=== PATIENT | female | born 1985 | race Hispanic/Latino ===

== ENCOUNTER 2016-06-26 14:08 | Emergency (ER) | payer SELFPAY ==
--- NOTE | 2016-06-26 16:26 | Emergency Department Report ---
Chief Complaint: Abdominal Pain Stated Complaint: ABD PAIN Time Seen by Provider: 06/26/16 16:21 - HPI History of Present Illness: Patient reports abdominal pain that started the first week in May. LMP 05/18 - ROS Review of Systems: all other systems are unremarkable except for documentation in HPI - Exam Vital Signs: Vital Signs 06/26/16 15:39 Temperature 98.7 F Pulse Rate 64 Blood Pressure 137/88 O2 Sat by Pulse 99 Oximetry Physical Exam: Gen: obese, NAD Abd: soft, nondistended, bowel sounds present, suprapubic tenderness to palpation, no guarding, rebound or rigid MSE screening note: Focused history and physical exam performed. Due to findings the following was ordered: laboratory studies ordered ED Disposition for MSE Condition: Stable Instructions: Abdominal Pain (ED)
[2016-06-26 16:53] LABS: Basophils % (Auto) 0.7 % (0.0-1.8); Eosinophils % (Auto) 2.9 % (0.0-4.3); Hematocrit 46.3 % (30.3-42.9); Hemoglobin 15.2 gm/dl (10.1-14.3); Mean Corpuscular HGB Conc 33 % (30-34); Mean Corpuscular Hemoglobin 28 pg (28-32); Mean Corpuscular Volume 87 fl (79-97); Platelet Count 282 K/mm3 (140-440); Red Blood Count 5.34 M/mm3 (3.65-5.03); Red Cell Distribution Width 14.6 % (13.2-15.2); White Blood Count 10.2 K/mm3 (4.5-11.0)
[2016-06-26 17:06] LABS: Blood Urea Nitrogen 6 mg/dL (7-17); Calcium 9.1 mg/dL (8.4-10.2); Carbon Dioxide 26 mmol/L (22-30); Chloride 103.8 mmol/L (98-107); Glucose 113 mg/dL (65-100); Potassium 4.2 mmol/L (3.6-5.0); Sodium 143 mmol/L (137-145)
[2016-06-26 17:11] LABS: Anion Gap 17 mmol/L
[2016-06-26 20:36] LABS: Bacteria,Urine 3+ /HPF (Negative); Bilirubin,Urine NEG (Negative); Blood,Urine NEG (Negative); Ketones,Urine NEG (Negative); Leukocyte Esterase,Urine SM (Negative); Mucus,Urine 2+ /HPF; Nitrite,Urine POS (Negative); Protein,Urine <15 mg/dL mg/dL (Negative); Urobilinogen,Urine < 2.0 mg/dL (<2.0)
[2016-06-26] MEDS ORDERED: PERCOCET 5/325 PO ONE (23:51)
--- NOTE | 2016-06-27 00:04 | Emergency Department Report ---
HPI - General Chief Complaint: Abdominal Pain Time Seen by Provider: 06/26/16 23:31 - HPI HPI: This is a 30-year-old female who presents to the emergency department with a 4 week history of right lower quadrant pain. There is no associated nausea, vomiting, fever, diarrhea, dysuria, vaginal bleeding or discharge. Patient says she has taken some Tylenol for her pain without much relief. She finally came in today because the pain and worsened recently. Patient does have a history of gallstones but says that pain was usually in the upper abdomen and this is in the lower abdomen. No recent travel or sick contacts at home. She has a past medical history of DVT, factor V deficiency, fibroids with myomectomy, abdominal hernia and GERD. ED Past Medical Hx - Past Medical History Hx Congestive Heart Failure: No Hx Diabetes: No Hx Deep Vein Thrombosis: Yes Hx GERD: Yes Hx Sickle Cell Disease: No Hx Seizures: No Hx Asthma: No Hx COPD: No Hx Dementia: No Hx HIV: No Additional medical history: Factor V deficiency, Abdominal hernia FIBROIDS CYST - Surgical History Additional Surgical History: MYEOMECTOMY - Social History Smoking Status: Current Every Day Smoker Substance Use Type: None - Medications Home Medications: Home Medications Medication Instructions Recorded Confirmed Last Taken Type Warfarin [Coumadin] 10 mg PO QDAY 05/27/14 10/05/15 09/30/15 History Ibuprofen [Motrin 200 MG tab] 4 tab PO PRN PRN 10/05/15 10/05/15 10/04/15 14:00 History HYDROcodone/APAP 5-325 [[place] 1 each PO Q4H PRN #30 tablet 10/07/15 Unknown Rx 5-325 mg TAB] HYDROcodone/APAP 5-325 [[place] 1 each PO Q6HR PRN #7 tablet 11/25/15 Unknown Rx 5/325] HYDROcodone/APAP 5-325 [[place] 1 each PO Q6HR PRN #16 tablet 06/27/16 Unknown Rx 5/325] ED Review of Systems ROS: Stated complaint: ABD PAIN Other details as noted in HPI Comment: All other systems reviewed and negative Constitutional: denies: chills, fever Eyes: denies: eye pain, eye discharge, vision change ENT: denies: ear pain, throat pain Respiratory: denies: cough, shortness of breath, wheezing Cardiovascular: denies: chest pain, palpitations Gastrointestinal: abdominal pain. denies: vomiting Genitourinary: denies: urgency, dysuria, discharge Musculoskeletal: denies: back pain, joint swelling, arthralgia Skin: denies: rash, lesions Neurological: denies: headache, weakness, paresthesias Physical Exam - Physical Exam Vital Signs: Vital Signs 06/26/16 06/26/16 15:39 22:35 Temperature 98.7 F 98.5 F Pulse Rate 64 78 Respiratory 18 Rate Blood Pressure 137/88 130/83 O2 Sat by Pulse 99 98 Oximetry Physical Exam: GENERAL: The patient is well-developed well-nourished. Patient does not appear in any acute distress. HEENT: Normocephalic. Atraumatic. Extraocular motions are intact. Patient has moist mucous membranes. Pupils equal reactive to light bilaterally. NECK: Supple. Trachea is midline. CHEST/LUNGS: Clear to auscultation. There is no respiratory distress noted. HEART/CARDIOVASCULAR: Regular. There is no tachycardia. There is no gallop rub or murmur. ABDOMEN: Abdomen is soft. Patient has mild tenderness to palpation to the right lower quadrant. No guarding rebound tenderness. No peritoneal signs. Obese habitus. Patient has normal bowel sounds. There is no abdominal distention. SKIN: There is no rash. There is no edema. There is no diaphoresis. NEURO: The patient is awake, alert, and oriented. The patient is cooperative. The patient has no focal neurologic deficits. The patient has normal speech. MUSCULOSKELETAL: There is no tenderness or deformity. There is no limitation range of motion. There is no evidence of acute injury. ED Course Vital Signs 06/26/16 06/26/16 15:39 22:35 Temperature 98.7 F 98.5 F Pulse Rate 64 78 Respiratory 18 Rate Blood Pressure 137/88 130/83 O2 Sat by Pulse 99 98 Oximetry ED Medical Decision Making - Lab Data Result diagrams: 06/26/16 16:32 06/26/16 16:32 - Radiology Data Radiology results: report reviewed CT of the abdomen and pelvis with IV contrast shows that there are gallstones. There is no specific evidence of cholecystitis or biliary ductal dilation. No bowel obstruction, colitis or enteritis. The appendix is normal. There is an arcuate uterus. There is a fluid and the endometrium. There are complex low density lesions in the cervix which could be nabothian cyst. There are bilateral ovarian cysts. The largest is in the right ovary measuring 4 cm. No ascites or free air, abscess or adenopathy. - Medical Decision Making 30-year-old female presents with 4 week history of right lower quadrant abdominal pain. Patient's vital signs were stable throughout her ED course. Her labs and unremarkable. An abdominal x-ray was done that showed some stool but otherwise no significant acute process. Due to the longevity of the patient 's discomfort, the patient decided that she would rather have a CT of the abdomen and pelvis done today, instead of treating her pain and seeing if she has resolution. The CT was done and it shows possible nabothian cysts as well as bilateral ovarian cysts with the largest on the right at 4 cm, where the patient is having discomfort. No signs of appendicitis. Patient was given a Percocet and is having some decrease in her discomfort. Patient will be given referrals for FITNESS ASSISTANT and primary care. She will return to the ER with any worsening of her symptoms or any acute distress. - Differential Diagnosis ovarian cyst, appendicitis, colitis, fibroids Critical Care Time: No Critical care attestation.: If time is entered above; I have spent that time in minutes in the direct care of this critically ill patient, excluding procedure time. ED Disposition Clinical Impression: Nabothian cyst Abdominal pain Qualifiers: Abdominal location: right lower quadrant Qualified Code(s): R10.31 - Right lower quadrant pain Ovarian cyst Qualifiers: Laterality: bilateral Qualified Code(s): N83.201 - Unspecified ovarian cyst, right side; N83.202 - Unspecified ovarian cyst, left side Disposition: DISCHARGED TO HOME OR SELFCARE Is pt being admited?: No Does the pt Need Aspirin: No Condition: Stable Instructions: Abdominal Pain (ED), Ovarian Cyst (ED) Additional Instructions: Please follow-up with a primary care doctor and FITNESS ASSISTANT in the near future. Return to the emergency department with any worsening of your symptoms or any acute distress. You've been prescribed a medication that is sedating. Therefore this medication cannot be mixed with alcohol, or taken prior to driving, working, or being responsible for children. Prescriptions: HYDROcodone/APAP 5-325 [[place] 5/325] 1 each PO Q6HR PRN #16 tablet PRN Reason: Pain Referrals: PRIMARY CARE, [Primary Care Provider] - 3-5 Days ANALY DIANA MD [Staff Physician] - 3-5 Days BRIANNE KEENAN MD [Staff Physician] - 3-5 Days [facility] [Outside] - 3-5 Days Time of Disposition: 02:09
[2016-06-27 00:09] LABS: Alanine Aminotransferase 18 units/L (7-56); Albumin 3.8 g/dL (3.9-5); Albumin/Globulin Ratio 1.1 %; Alkaline Phosphatase 74 units/L (35-129); Bilirubin,Direct < 0.2 mg/dL (0-0.2); Bilirubin,Total < 0.2 mg/dL (0.1-1.2); Total Protein 7.4 g/dL (6.3-8.2)
[2016-06-27] MEDS ORDERED: NACL ONE (00:41)
--- NOTE | 2016-06-27 01:49 | Cat Scan Report ---
FINAL REPORT PROCEDURE: CT ABDOMEN PELVIS W CON TECHNIQUE: Computerized axial tomography of the abdomen and pelvis was performed after the IV injection of iodinated nonionic contrast. HISTORY: Abd pain COMPARISON: No prior studies are available for comparison. FINDINGS: Visualized lower thorax: No significant abnormality. Liver: Normal size and attenuation. Spleen: Normal size and attenuation. Gallbladder and biliary system: There are gallstones. There is no specific evidence of cholecystitis or biliary ductal dilatation.. Pancreas: Normal. Adrenals: Normal. Kidneys: Normal. GI tract: There is no bowel obstruction, colitis or enteritis. The appendix is normal.. Lymph nodes and mesentery: Normal. Vasculature: Normal. Bladder: Normal. Reproductive organs: There is an arcuate uterus. There is fluid in the endometrium. There are complex low-density the lesions in the cervix which could be nabothian cysts. There are bilateral ovarian cysts. The largest is in the right ovary measuring 4 centimeters.. Peritoneum: There is no ascites or free air, abscess or adenopathy.. Musculoskeletal structures: No significant abnormality. Other: None. IMPRESSION: There are gallstones. There is no specific evidence of cholecystitis or biliary ductal dilatation.. There is no bowel obstruction, colitis or enteritis. The appendix is normal.. There is an arcuate uterus. There is fluid in the endometrium. There are complex low-density the lesions in the cervix which could be nabothian cysts. There are bilateral ovarian cysts. The largest is in the right ovary measuring 4 centimeters.. There is no ascites or free air, abscess or adenopathy..
--- NOTE | 2016-06-27 01:57 | Admit Criteria Form ---
Admission Criteria Documentation: GALLBLADDER OR BILE DUCT INFLAMMATION OR STONE Clinical Indications for Admission to Inpatient Care ( Place 'X' for any and all applicable criteria): Admission is indicated for patients with ANY ONE of the following(1)(2)(3)(4)(5) : [ ]I. Acute cholecystitis as indicated by ALL of the following: [ ]a) Right upper quadrant pain, mass, or tenderness [ ]b) Systemic signs of inflammation indicated by ANY ONE of the following: [ ]i) Fever [ ]ii) C-reactive protein level greater than 10 mg/L (95 nmol/L) [ ]iii) White blood cell count greater than 10,000/mm3 (10 x109/L) or less than 4000/mm3 (4 x109/L) [X ]II. Inpatient admission required rather than observation care (Also use Gallbladder or Bile Duct Inflammation or Stone: Observation Care as appropriate) because of ANY ONE of the following: [ ]a) Common bile duct obstruction diagnosed [ ]b) Vomiting that is severe or persistent [X ]c) Severe pain requiring acute inpatient management [ ]d) Signs of intestinal obstruction or peritonitis [A] [ ]e) Severe electrolyte abnormalities requiring inpatient care [ ]f) Absent bowel sounds with complete ileus(8) [ ]g) Hemodynamic instability [ ]h) High fever or infection requiring inpatient admission as indicated by ANY ONE of the following (9): [ ]1) Appropriate outpatient or observation care antimicrobial Treatment. unavailable, not effective, or not feasible [ ]2) Temperature greater than 104.9 degrees F (40.5 degrees C) (oral) [ ]3) Temperature greater than 103.1 degrees F (39.5 degrees C) (oral) or less than 96.8 degrees F (36 degrees C) (rectal) that does not respond to all emergency treatment measures [ ]4) Documented bacteremia [ ]i) IV fluid to replace significant ongoing losses (greater than 3 L/m2 per day) [ ]j) Percutaneous or open drainage (eg, abscess, biliary tract) procedures [ ]k) Immediate inpatient surgery [ ]l) Other condition, treatment or monitoring requiring inpatient admission [ ]III. Acute cholangitis as indicated by ALL of the following(9)(10): [ ]a) Systemic signs of inflammation indicated by ANY ONE of the following: [ ]i) Fever [ ]ii) C-reactive protein level greater than 10 mg/L (95 nmol /L) [ ]iii) White blood cell count greater than 10,000/mm3 (10 x109/L) or less than 4000/mm3 (4 x109/L) [ ]b) Evidence of common bile duct disease indicated by ANY ONE of the following: [ ]i) Total serum bilirubin level greater than or equal to 2 mg/dL (34 micromoles/L) [ ]ii) Liver function test (alkaline phosphatase (ALP), r- glutamyltransferase (GGT), aspartate aminotransferase (AST), or alanine aminotransferase (ALT)) greater than 1.5 times the upper limit of normal[B] [ ]iii) Hepatobiliary imaging showing biliary dilatation or evidence of etiology (eg, stricture, stone, previously placed stent) Extended stay beyond goal length of stay may be needed for (1)(2)): [ ]a) Bacteremia or Hemodynamic instability [ ]b) Cholecystectomy [ ]c) Other surgical procedure(24) [ ]d) Percutaneous or endoscopic ultrasound-guided cholecystostomy The original [facility] content created by [facility] has been revised. The portions of the content which have been revised are identified through the use of italic text or in bold, and [facility] has neither reviewed nor approved the modified material. All other unmodified content is copyright [facility]. Please see references footnoted in the original [email or web address] edition 2016 Admission Criteria Met: Yes
[2016-06-27 04:39] VITALS: BP 132/89
== END 2016-06-27 02:20 | disposition home or self-care (01) ==
LOC: ED 14:08
DX: N83.201 Unspecified ovarian cyst, right side (principal); N83.202 Unspecified ovarian cyst, left side; N88.8 Other specified noninflammatory disorders of cervix uteri; K21.9 Gastro-esophageal reflux disease without esophagitis; F17.200 Nicotine dependence, unspecified, uncomplicated; Z86.718 Personal history of other venous thrombosis and embolism; Z90.89 Acquired absence of other organs
CPT/HCPCS: 36415; 74020; 74177; 80048; 80074; 81001; 84702; 85025; 99284; Q9967

== ENCOUNTER 2016-11-04 21:37 | Emergency (ER) | payer SELFPAY ==
[2016-11-04 22:09] VITALS: BP 148/95
[2016-11-04 22:35] LABS: Basophils % (Auto) 0.7 % (0.0-1.8); Eosinophils % (Auto) 3.1 % (0.0-4.3); Hemoglobin 12.5 gm/dl (10.1-14.3); Mean Corpuscular HGB Conc 31 % (30-34); Mean Corpuscular Volume 72 fl (79-97); Platelet Count 330 K/mm3 (140-440); Red Blood Count 5.54 M/mm3 (3.65-5.03); Red Cell Distribution Width 18.6 % (13.2-15.2)
[2016-11-04 22:37] LABS: Mean Corpuscular Hemoglobin 23 pg (28-32)
[2016-11-04 22:43] LABS: INR 0.96 (0.87-1.13)
[2016-11-04 22:56] LABS: BUN/Creatinine Ratio 16.66; Blood Urea Nitrogen 10 mg/dL (7-17); Carbon Dioxide 22 mmol/L (22-30); Glucose 101 mg/dL (65-100)
[2016-11-04 22:57] LABS: Alanine Aminotransferase 13 units/L (7-56); Albumin 4.1 g/dL (3.9-5); Albumin/Globulin Ratio 1.2 %; Alkaline Phosphatase 81 units/L (35-129); Anion Gap 19 mmol/L; Chloride 101.2 mmol/L (98-107); Potassium 3.9 mmol/L (3.6-5.0); Sodium 138 mmol/L (137-145); Total Protein 7.5 g/dL (6.3-8.2)
== END 2016-11-05 05:57 | disposition left against medical advice (07) ==
LOC: ED 21:37
DX: M79.605 Pain in left leg (principal); Z53.21 Procedure and treatment not carried out due to patient leaving prior to being seen by health care provider
CPT/HCPCS: 36415; 80053; 85025; 85610

== ENCOUNTER 2018-08-29 11:13 | Outpatient (CLI) | payer MEDICARE ==
--- NOTE | 2018-08-29 15:28 | Vascular Lab Report ---
PROCEDURE: VL VENOUS DUPLEX LE LT Technique: Transverse longitudinal sonograms obtained left lower extremity. Spectral and color Dopple r evaluation. Duplex study. Compression and augmentation. HISTORY: D68.59 OTHER PRIMARY THROMBOPHILIA COMPARISONS: None FINDINGS: the left common femoral, superficial femoral and popliteal veins demonstrate normal flow with Doppler . There is compressibility. Phasic flow. Augmentation. There is mild irregularity along the wall compat ible with chronic post DVT changes. These findings are also identified within the posterior tibial an d peroneal veins. Reflux was noted from the popliteal vein. IMPRESSION: No acute deep venous thrombus noted left lower extremity. Evidence for chronic post DVT changes noted. This document is electronically signed by Abdoul Dockery MD., August 29 2018 03:25:14 PM ET
== END 2018-08-29 11:14 | disposition home or self-care (01) ==
LOC: VAS 11:13
PROVIDERS: ATTEND Internal Medicine Hematology & Oncology
DX: I82.402 Acute embolism and thrombosis of unspecified deep veins of left lower extremity (principal); D68.59 Other primary thrombophilia; K21.9 Gastro-esophageal reflux disease without esophagitis; E66.9 Obesity, unspecified; Z87.891 Personal history of nicotine dependence